=== PATIENT | female | born 1980 | race Two or more races ===

== ENCOUNTER 2016-10-22 06:14 | Day surgery (SDC) | payer OTHER ==
[~2016-10-22 06:14] MED LIST: Buffered Lidocaine 0.9% SYRIN* 5 ML/SYR SYRINGE INTRADERM ONE; Famotidine IV* 10 MG/ML 2 ML (20 mg) IV ONE; Metoclopramide TAB* 10 MG PO ONE
[2016-10-22] MEDS ORDERED: Famotidine IV* 10 MG/ML 2 ML (20 mg) ONE (06:43)
[2016-10-22] MEDS ORDERED: Metoclopramide TAB* 10 MG ONE (06:43)
[2016-10-22] MEDS ORDERED: Buffered Lidocaine 0.9% SYRIN* 5 ML/SYR SYRINGE ONE (06:43)
[2016-10-22] MEDS ORDERED: DOXYcycline IV* 100 MG in NS 0.9% 250 ML* 250 ML IVPB ONE (07:00)
[2016-10-22] MEDS ORDERED: Silver Nitrate/Potassium Nitr* 1 EA STICK ONE (07:07)
[2016-10-22] MEDS ORDERED: Lidocaine 2% PF * 5 ML VIAL ONE (07:22)
[2016-10-22] MEDS ORDERED: fentaNYL* 50 MCG/ML 2 ML VIAL (100 MCG VIAL) ONE (07:22)
[2016-10-22] MEDS ORDERED: Dexamethasone IV* 4 MG/ML 1 ML (4 MG) ONE (07:22)
[2016-10-22] MEDS ORDERED: Propofol* 10 MG/ML 20 ML BTL IV PUSH ONE (07:22)
[2016-10-22] MEDS ORDERED: Midazolam* 1 MG/ML 5 ML VIAL (5 MG) ONE (07:22)
[2016-10-22] MEDS ORDERED: Ondansetron INJ* 2 MG/ML VIAL ONE (07:22)
[2016-10-22] MEDS ORDERED: Ketorolac INJ* 30 MG/ML 1 ML VIAL ONE (07:22)
[2016-10-22] MEDS ORDERED: KETAMINE HCL* 50 MG/ML 10 ML VIAL ONE (07:22)
[2016-10-22] MEDS ORDERED: Chloroprocaine 2%* 20 ML VIAL ONE (07:42)
[2016-10-22] MEDS ORDERED: Midazolam* 1 MG/ML 2 ML VIAL (2 MG) ONE (08:10)
[2016-10-22] MEDS ORDERED: oxyCODONE/Acetamin 5/325 MG* TAB PO PRN (08:51)
[2016-10-22] MEDS ORDERED: fentaNYL* 50 MCG/ML 2 ML VIAL (100 MCG VIAL) IV PRN (08:51)
[2016-10-22] MEDS ORDERED: Ondansetron INJ* 2 MG/ML VIAL IV PRN (08:51)
[2016-10-22] MEDS ORDERED: RHO D Immune Globulin (HUMAN)* 300 MCG = 1,500 I.U. INJ IM ONE (10:00)
[2016-10-22 10:33] VITALS: BP 101/60
--- NOTE | 2016-10-23 04:21 | OP ---
DATE OF OPERATION: 10/22/16 - [facility] DATE OF : 80 SURGEON: Sergey Huff MD ANESTHESIOLOGIST: Dr. Farley. ANESTHESIA: Spinal. PRE-OP DIAGNOSIS: Missed . POST-OP DIAGNOSIS: Missed . OPERATIVE PROCEDURE: Suction dilation and curettage. INDICATIONS: The patient is a 35-year-old 2, para 0-0-2-0, recently diagnosed with an anembryonic gestation. She was followed over the last couple of weeks and noted to have decreasing HCG levels and no development of a pole. She was extensively counseled regarding her options and she desired to proceed with a D and C. She also desired to have the tissue examined for chromosomal analysis. She was extensively counseled and consent was signed. ESTIMATED BLOOD LOSS: Minimal. URINE OUTPUT: 150 cc. IV FLUIDS: 1000 cc lactated Ringer's. MATERIALS TO LAB: Products of conception. FINDINGS: Appropriate amount of tissue within the uterine cavity, minimal bleeding during and after the procedure. COMPLICATIONS: None. DESCRIPTION OF PROCEDURE: The risks, benefits, and alternatives were described to the patient, and informed consent was obtained. The patient was taken to the operating room with IV running, where spinal anesthesia was induced and found to be adequate. The patient was prepped and draped in the normal sterile fashion in the high lithotomy position in Cristino strips. A time-out was performed. The bladder was emptied. A bivalved speculum was placed in the vagina and a single- tooth tenaculum was placed on the anterior cervix. The cervix was then gently dilated using Hayden's dilator to a maximum size of 30. At that time, a curved size 8 suction curette was able to be advanced through the cervix and into the uterine cavity. The uterus sounded to about 10 cm. Suction was then activated and the intrauterine contents were evacuated. Moderate amount of bloody fluid and tissue were obtained. After 2 passes, the suction curette was removed. A medium banjo curette was then placed into the uterine cavity and a gentle sharp curettage was performed to ensure that there was no remaining tissue present. There was excellent cry noted in all 4 quadrants. The tenaculum was then removed from the cervix and there was excellent hemostasis present. The speculum was removed and the patient was returned to the supine position. The patient tolerated the procedure well. Sponge, lap, and needle counts were correct x2. [id number]/[facility] #: [id number] [facility]
== END 2016-10-22 11:10 | disposition home or self-care (01) ==
LOC: OR 06:14
PROVIDERS: ATTEND Obstetrics & Gynecology
PROC: 10D17ZZ Extraction of Products of Conception, Retained, Via Natural or Artificial Opening (ICD-10-PCS; principal; 2016-10-22 07:45)
DX: O02.1 Missed abortion (principal); O09.521 Supervision of elderly multigravida, first trimester; O26.21 Pregnancy care for patient with recurrent pregnancy loss, first trimester; Z3A.00 Weeks of gestation of pregnancy not specified
CPT/HCPCS: 88233; 88291; 88305; A9270-GY; J1100; J1885; J2250; J2400; J2405; J2704; J2790; J3010

== ENCOUNTER 2017-04-12 17:43 | Emergency (ER) | payer OTHER ==
[2017-04-12 18:57] LABS: BUN/Creatinine Ratio 19.4 (8-20); EGFR African American 140.1 (>60); EGFR Non-African American 108.9 (>60); Globulin 2.7 g/dL (2-4); Potassium 3.9 mmol/L (3.5-5.0); Total Bilirubin 0.8 mg/dL (0.2-1.0); Total Protein 6.7 g/dL (6.4-8.9)
[2017-04-12 22:32] LABS: Hematocrit 36 % (35-47); Hemoglobin 12.2 g/dl (12.0-16.0); Mean Corpuscular HGB Conc 34 g/dl (31-36); Mean Corpuscular Hemoglobin 31 pg (27-31); Mean Corpuscular Volume 91 fL (80-97); Mean Platelet Volume 9 um3 (7.4-10.4); Red Blood Count 3.95 10^6/ul (4.0-5.4); Red Cell Distribution Width 13 % (10.5-15); White Blood Count 7.6 10^3/ul (3.5-10.8)
[2017-04-12] MEDS ORDERED: RHO D Immune Globulin (HUMAN)* 300 MCG = 1,500 I.U. INJ IM SCH (23:00)
--- NOTE | 2017-04-12 23:06 | ED ---
Swapna Resendiz Alfonso, scribed for Jenn Garcia MD on 04/12/17 at 2150 . GI/ HPI - HPI Summary HPI Summary: This patient is a 36 year old F by IVF, [facility] accompanied by with a chief complaint of vaginal bleeding last pm and earlier today which has since resolved. She thinks the bleeding is from a mechanical abrasion where light pink blood was noted after applying an application of a progesterone suppository last pm with a plastic applicator. This morning she noted beige colored spotting in her panty liner. She applied the progesterone suppository again this am, but used her finger not the plastic applicator to insert it. This patient is 4 weeks 5 days with IVF, A2, and her due date is 12/15/17. She was implanted with a day 5 embryo transfer on 03/29/18. Two days ago her beta HCG was 2466, and on 04/08/17 her B HCG was 598. Her fertility doctor is Art Quinonez M.D. at [facility]. She is O neg blood type and her partner has a + blood type. The patient rates the pain 0/10 in severity. Bleeding alleviated spontaneous resolution. Patient denies abdominal pain. Pt spoke with Dr. Quinonez earlier today, and he recommended she come to the ED for further eval, and rhogam administration. - History of Current Complaint Chief Complaint: EDOBProblems Time Seen by Provider: 04/12/17 21:32 Stated Complaint: 4 WKS PREG/SPOTTING Hx Obtained From: Patient Onset/Duration: Started Hours Ago, Resolved Timing: Constant Severity: Mild Current Severity: None Vaginal Bleeding Description: Bright Red - pink, then beige Number of Pads per Day: 0 Pain Intensity: 0 - /10 Associated Signs and Symptoms: Positive: Negative. Negative: Abdominal Pain Additional Signs & Symptoms: Positive: Positive Test - IVF , Estimated Date of Conception - 12/15/17, pt is 4 weeks 5 days based on day 5 embryo transfer on 03/29/17 Aggravating Factor(s): Nothing Alleviating Factor(s): Spontaneous Resolution - Risk Factors Ectopic Risk Factor(s): Assisted Reproductive Technique - Allergy/Home Medications Allergies/Adverse Reactions: Allergies Allergy/AdvReac Type Severity Reaction Status Date / Time Latex Allergy Mild Itching Verified 10/22/16 06:32 PMH/Surg Hx/FS Hx/Imm Hx Previously Healthy: Yes Endocrine/Hematology History: Denies: Hx Anticoagulant Therapy, Hx Blood Disorders, Hx Thyroid Disease, Hx Anemia Respiratory History: Reports: Other Respiratory Problems/Disorders - tends to sinus infection alot History: Reports: Other Problems/Disorders - h/o yeast infections and UTI' s - usually once a year Sensory History: Reports: Hx Contacts or Glasses - both - glasses day of surgery Denies: Hx Hearing Aid Opthamlomology History: Reports: Hx Contacts or Glasses - both - glasses day of surgery EENT History: Denies: Hx Deafness Psychiatric History: Reports: Hx Anxiety - mild - Cancer History Hx Chemotherapy: No Infectious Disease History: No Infectious Disease History: Denies: Hx of Known/Suspected MRSA, History Other Infectious Disease - no h/ o STD's, Traveled Outside the [place] in Last 30 Days - Family History Known Family History: Positive: Other - mom-hyperthyroid; lizy's and graves ; maybe some fertility issues Negative: Blood Disorder - Social History Lives: With Family Alcohol Use: None Alcohol Amount: with dinner Hx Substance Use: No Substance Use Type: Reports: None Hx Tobacco Use: No Smoking Status (MU): Never Smoked Tobacco Review of Systems Negative: Fever Negative: Abdominal Pain Positive: other - Vaginal bleeding Skin: Negative Neurological: Negative Psychological: Normal All Other Systems Reviewed And Are Negative: Yes Physical Exam Triage Information Reviewed: Yes Vital Signs On Initial Exam: Initial Vitals Temp Pulse Resp BP Pulse Ox 97.9 F 79 18 112/65 100 04/12/17 17:56 04/12/17 17:56 04/12/17 17:56 04/12/17 17:56 04/12/17 17:56 Vital Signs Reviewed: Yes Appearance: Positive: Well-Appearing, No Pain Distress, Well-Nourished Skin: Positive: Warm, Skin Color Reflects Adequate Perfusion Head/Face: Positive: Normal Head/Face Inspection Eyes: Positive: Conjunctiva Clear ENT: Positive: Normal ENT inspection Neck: Positive: Supple Respiratory/Lung Sounds: Positive: Clear to Auscultation, Breath Sounds Present , Other - No respiratory distress Cardiovascular: Positive: RRR, Pulses are Symmetrical in both Upper and Lower Extremities, Other - Brisk capillary refill. Negative: Murmur Abdomen Description: Positive: Nontender, Soft Bowel Sounds: Positive: Present Pelvic Exam: Positive: other - Cervix is closed. No blood in the vagina. No mucosal abrasion apparent. Uterus is palpable about 4 weeks size and nontender. No adnexal tenderness. No masses. certified bench jeweler technician Edith witness. Musculoskeletal: Positive: Strength/ROM Intact Neurological: Positive: Alert, Oriented to Person Place, Time, Facial Symmetry, Speech Normal, Other - muscle tone normal, facial symmetry, speech normal, sensory/motor intact Psychiatric: Positive: Normal - Barbie Coma Scale Coma Scale Total: 15 Diagnostics - Vital Signs Vital Signs Temp Pulse Resp BP Pulse Ox 04/12/17 21:22 81 100 04/12/17 21:20 113/59 04/12/17 17:56 97.9 F 79 18 112/65 100 - Laboratory Lab Results: Lab Results 04/12/17 04/12/17 04/12/17 Range/Units 18:32 18:32 18:32 INR (Anticoag Therapy) 0.95 (0.77-1.02) APTT 31.8 (26.0-36.3) seconds Sodium 134 (133-145) mmol/L Potassium 3.9 (3.5-5.0) mmol/L Chloride 104 (101-111) mmol/L Carbon Dioxide 27 (22-32) mmol/L Anion Gap 3 (2-11) mmol/L BUN 12 (6-24) mg/dL Creatinine 0.62 (0.51-0.95) mg/dL Est GFR ( Amer) 140.1 (>60) Est GFR (Non-Af Amer) 108.9 (>60) BUN/Creatinine Ratio 19.4 (8-20) Glucose 98 (70-100) mg/dL Calcium 9.0 (8.6-10.3) mg/dL Total Bilirubin 0.80 (0.2-1.0) mg/dL AST 20 (13-39) U/L ALT 10 (7-52) U/L Alkaline Phosphatase 47 (34-104) U/L Total Protein 6.7 (6.4-8.9) g/dL Albumin 4.0 (3.2-5.2) g/dL Globulin 2.7 (2-4) g/dL Albumin/Globulin Ratio 1.5 (1-3) Beta HCG, Quant 7900.00 mIU/mL Blood Type O Negative Result Diagrams: 04/12/17 18:32 04/12/17 18:32 Lab Statement: Any lab studies that have been ordered have been reviewed, and results considered in the medical decision making process. Re-Evaluation - Re-Evaluation First Eval Re-Evaluation Time: 23:00 - discussed with booth supervisor in lab, Bertin, mike Ríos in lab, and two swabs should not be in the collected sample. Repeated vaginal swab specimen collection without speculum exam. Change: Unchanged GIGU Course/Dx - Course Course Of Treatment: Consulted with Dr. Quinonez's service, Dr. Cruz, fellow, contact center team lead, discussed pt care with myself and pt and her . [phone]. Rhogam ordered and administration of it pending at change of shift. Ultrasound ordered and pending at change of shift. Care to Dr. Beckham at 22:45. Assessment/Plan: Patients medications reviewed this visit. - Diagnoses Differential Diagnoses - Female: Ectopic , Incomplete , Provider Diagnoses: conceived through in vitro fertilization, Need for rhogam due to Rh negative mother - Physician Notifications Discussed Care Of Patient With: nando - Dr. Cruz, [facility] Time Discussed With Above Provider: 22:15 Instructed by Provider To: Other - administer rhogam, do ultrasound. Dr. Cruz understands that pt is early in gestation. He is hoping that a sac in the uterus will be visible, and that the adnexa will not show evidence of an ectopic . He is available for further consultation if there is any question about the ultrasound results. If ultrasound shows a sac and no evidence of ectopic , pt may be discharged. She should call Dr. Quinonez in the am, and proceed with the suppositories and the blood work as directed. Discharge - Discharge Plan Condition: Stable Disposition: OTHER Discharge Disposition Comment: care to Dr. Beckham at 22:45 Patient Education Materials: Rho (By injection), (ED) Referrals: Julia Nazario MD [Primary Care Provider] - Additional Instructions: Call Dr. Quinonez in the morning. You were given rhogam tonight. Your beta HCG level was 7900 tonight. There are pelvic cultures pending. We will notify you if you need further treatment based on those results. We havd given you a copy of the ultrasound and have advised you that the report is only a preliminary report until 04/13/17 am. We will contact you if there is any change in the report. RETURN TO THE EMERGENCY DEPARTMENT FOR CHANGING OR WORSENING SYMPTOMS. The documentation as recorded by the Swapna fields Alfonso accurately reflects the service I personally performed and the decisions made by me, Jenn Garcia MD.
[2017-04-13 00:35] LABS: Urine Bilirubin Negative (Negative); Urine Glucose Negative (Negative); Urine Nitrite Negative (Negative)
--- NOTE | 2017-04-13 01:26 | ED ---
I, Kelly Castro, scribed for Alison Beckham MD on 04/13/17 at 0116 . Progress - Progress Note Progress Note: Pt was signed out by Dr. Garcia, pending disposition, awaiting Transvaginal US results. - Results/Orders Results/Orders: Transvaginal US: Multiple irregular cysts foci in endometrium, the largest of which measures 7 x 5 x 4 mm, question adenomyosis, although a superimposed early gestational sac is not excluded. No visible yolk sac or pole. Endometrial stripe thickness 13 mm. No adnexal masses appreciated. Findings could represent early gestation or spontaneous . Advise correlation with quantitative serial beta-hCG and follow-up ultrasound as clinically indicated to exclude possibility of nonvisualized ectopic . Closed cervix. No ovarian torsion. Color flow with appropriate arterial and venous waveforms. Left ovary contains a 2.9 x 2.8 x 2.2 cm probably teratoma and a 1.9 cm corpus luteum. 1.[address] Beckham reviewed this radiology report. Re-Evaluation - Re-Evaluation First Eval Re-Evaluation Time: 01:24 Change: Improved Comment: Discussed results and D/C plan with the pt as well as that she should follow up with her OB in the morning. Course/Dx - Course Course Of Treatment: Pt was signed out by Dr. Garcia, pending US results. Transvaginal US results above. Discussed care of pt with FEED ADVISER who advised D/C to home and followup in the morning. She understands and agrees. - Diagnoses Provider Diagnoses: conceived through in vitro fertilization, Need for rhogam due to Rh negative mother, Early stage of - Provider Notifications Discussed Care Of Patient With: Sergey Huff Time Discussed With Above Provider: 00:21 Instructed by Provider To: Other - The pt can follow-up with Dr. Quinonez in the morning. The documentation as recorded by the Matthew fields Rebecca accurately reflects the service I personally performed and the decisions made by me, Alison Beckham MD.
[2017-04-13 01:45] VITALS: BP 114/69
--- NOTE | 2017-04-13 08:55 | RAD ---
HISTORY: , spotting COMPARISONS: April 02, 2016 TECHNIQUE: Multiple transverse and longitudinal ultrasound images were obtained of the pelvis using grayscale, color Doppler, and spectral Doppler imaging using the endovaginal transducer. FINDINGS: UTERUS: The uterus measures 8.3 x 4.6 x 5.1 cm. There is a 0.9 x 0.5 x 1.1 cm fibroid of the posterior body, subserosal. There is prominence of the vasculature along the broad ligament on the left. ENDOMETRIUM: There is a small amount of fluid within the endometrial cavity without discrete identifiable gestational sac. No definite intrauterine gestation is identified.. There is cystic change within the endometrium. The endometrium measures 1.3 cm in thickness. CUL-DE-SAC: There is no free fluid within the cul-de-sac. RIGHT OVARY: The right ovary measures 2.8 x 1.2 x 2.6 cm. Normal arterial and venous waveforms are identifiable within the ovary on spectral Doppler imaging. Multiple follicles are noted. LEFT OVARY: The left ovary measures 5.2 x 2 x 3.6 cm. Normal arterial and venous waveforms are identifiable within the ovary on spectral Doppler imaging. Multiple follicles are noted, including a corpus luteum body, measuring 1.06 x 2.7. There is an echogenic cystic lesion measuring 2.9 x 2.2 x 2.8 cm in size suggestive of a dermoid cyst. BLADDER: The bladder is not well visualized. OTHER: None IMPRESSION: 1. NO DEFINITE INTRAUTERINE GESTATION. THERE IS SMALL AMOUNT OF FLUID WITHIN THE ENDOMETRIAL CAVITY. THE DIFFERENTIAL INCLUDES EARLY INTRAUTERINE GESTATION, MISSED , OR ECTOPIC . RECOMMEND CORRELATION WITH SERIAL BETA HCG LEVELS AND FOLLOW-UP IMAGING 2. CYSTIC CHANGE TO THE ENDOMETRIUM. 3. PROBABLE DERMOID OF THE LEFT OVARY. 4. PROMINENCE OF THE VASCULATURE ALONG THE PELVIC VASCULATURE ON THE LEFT WHICH CAN BE SEEN IN ASSOCIATION WITH PELVIC CONGESTION SYNDROME.
== END 2017-04-13 01:44 ==
LOC: ED 17:43
DX: O09.811 Supervision of pregnancy resulting from assisted reproductive technology, first trimester (principal); Z3A.01 Less than 8 weeks gestation of pregnancy; Z91.040 Latex allergy status; F41.9 Anxiety disorder, unspecified
CPT/HCPCS: 36415; 76817; 80053; 81003; 84702; 85025; 85610; 85730; 86850; 86900; 86901; 87480; 87491; 87510; 87591; 87661; 96372; 99284; J2790